=== PATIENT | male | born 1990 | race Caucasian/White ===

== ENCOUNTER 2023-05-27 13:21 | Inpatient (IN) ==
[2023-05-27 14:39] LABS: Basophils # (auto) 0.06 K/uL (0.00-0.20); Basophils % (auto) 0.7 %; Eosinophils # (auto) 0.02 K/uL (0.00-0.50); Eosinophils % (auto) 0.2 %; Hematocrit (blood only) 42.4 % (42.0-52.0); Hemoglobin 14.8 g/dl (14.0-18.0); Immature Granulocytes # (auto) 0.07 K/uL (0.01-0.20); Immature Granulocytes % (auto) 0.8 %; Lymphocytes # (auto) 1.93 K/uL (1.20-3.40); Mean Corpuscular Hgb Conc 34.9 g/dL (32.0-36.0); Mean Corpuscular Volume 91.8 fL (80.0-100.0); Mean Platelet Volume 9.8 fL (9.4-12.4); Monocytes # (auto) 0.73 K/uL (0.11-0.59); Monocytes % (auto) 7.9 %; Neutrophils # (auto) 6.38 K/uL (1.40-6.50); Neutrophils % (auto) 69.4 %; Platelet Count 320 K/uL (130-400); RDW Standard Deviation 40.6 fL (36.4-46.3); Red Blood Count 4.62 M/uL (4.70-6.10); White Blood Count 9.19 K/ul (4.8-10.8)
[2023-05-27 14:48] LABS: Albumin Level 5.1 gm/dl (3.4-5.0); BUN Creatinine Ratio 11.5 (10-20); Bilirubin Direct 0.1 mg/dl (0-0.2); Bilirubin,Total 0.7 mg/dl (0.2-1.0); Calcium 9.6 mg/dl (8.6-10.3); Est GFR (Non-African American) 102.7 ml/min; Potassium 3.7 mmol/L (3.5-5.1); Total Protein 7.8 gm/dl (6.0-8.3)
--- NOTE | 2023-05-27 15:00 | CT Scan Report ---
CT cervical spine wo con CT DOSE: 1119. mGy.cm CLINICAL HISTORY: 33 years-old Male with seizure. Acute seizure-like activity COMPARISON: Head CT of same day TECHNIQUE: Multiple axial CT images of the cervical spine were obtained without contrast. A dose low ering technique was utilized adhering to the principles of ALARA. FINDINGS: Minimal multilevel intervertebral disc space narrowing with mild uncovertebral hypertrophy. No acute fracture or subluxation identified. Minimal facet arthrosis. Chronic-appearing corticated o ssification adjacent to the C7 spinous process. Minimal wedge deformity of the C7 vertebral body appe ars chronic. Minimal levoscoliosis. The cervical soft tissues appear unremarkable. The visualized yelena ng apices appear clear. IMPRESSION: No acute cervical spine fracture or subluxation. ACT 112: Negative or not required by law. The above report was generated using voice recognition software. It may contain grammatical, syntax o r spelling errors. Electronically signed by: Atul Jasmine M.D. 05/27/2023 2:58 PM
--- NOTE | 2023-05-27 15:00 | CT Scan Report ---
CT OF THE HEAD WITHOUT CONTRAST CLINICAL HISTORY: Seizure. COMPARISON STUDY: No previous studies for comparison. TECHNIQUE: Helical axial images of the head were obtained without IV contrast. Automated exposure con trol was utilized for the study. A dose lowering technique was utilized adhering to the principles o f ALARA. FINDINGS: No acute intracranial hemorrhage, midline shift or mass effect is present. The ventricular system is unremarkable. The basal cisterns are patent. No extra-axial collections are present. There are no findings to suggest acute dural sinus thrombosis or acute territorial infarct. There are no ca lvarial fractures. IMPRESSION: No acute intracranial findings. ACT 112: Negative or not required by law. Electronically signed by: Aftab Gallegos M.D. 05/27/2023 2:59 PM
[2023-05-27 15:16] LABS: Appearance Urine Clear (Clear); Bacteria Urine Automated Negative (Negative); Bilirubin Urine Negative (Negative); Blood Urine Negative (Negative); Color Urine Yellow; Glucose Urine UA Negative (Negative); Ketones Urine Negative (Negative); Leukocyte Esterase Urine Negative (Negative); Nitrite Urine Negative (Negative); Protein Urine Trace (Negative); RBC Urine Automated 0-4 /hpf (0-4); Specific Gravity Urine 1.016 (1.000-1.030); Urobilinogen Urine Negative (Negative); pH Urine 5.5 (4.5-7.5)
--- NOTE | 2023-05-27 16:38 | History & Physical Report ---
Date of Service May 27, 2023 Assessment & Plan (1) Seizure-like activity: (2) Tobacco use: (3) Alcohol use disorder: Plan This is a 33-year-old male with PMH of alcohol use disorder, tobacco use who presents after a witnessed seizure like activity episode at work today. Seizure like activity Tonic clonic activity witnessed today at work, happened once before Apr 26 with a prodrome of flashing lights in peripheral vision In setting of alcohol use disorder, denies any history of seizures prior to last month Head CT and cervical spine CT did not show any acute abnormality Discussed with Dr. Souza of neurology - recommends MRI brain w/wo, EEG. No need for antiseizure medication at this time, will evaluate Seizure precautions, alcohol withdrawal as below Alcohol use disorder, withdrawal Last drink was last evening at 1999 Endorses 5-6 beers nightly, up to 1 case on weekends AST elevated at 43, etoh level <10 AWSS withdrawal protocol with gabapentin and PRN IV ativan Counseled on importance of alcohol cessation Appears to be in early stages of alcohol withdrawal with mild tremors, tachycardia and hypertension Starting folic acid and thiamine Tobacco use disorder Counseled on smoking cessation Nicotine patch ordered DVT Ppx: SCDs Code status: FULL PCP: no PCP (will need to establish at time of discharge) Dispo: Admitted to PCU Patient seen in collaboration with Dr. Young. Please see addendum. I spent a total of 75 minutes coordinating, documenting, and providing care for this patient excluding time spent in the performance of separately billed servi perez. History of Present Illness Chief Complaint: seizure Primary Care Provider: NO PCP This is a 33-year-old male with PMH of alcohol use disorder, tobacco use who presents after a witnessed seizure like activity episode at work today. Patient is not established with a PCP. First developed an episode of flashing lights in lateral visual dawn back around gi but no seizure like activity was associated. Then on Apr 26, patient also experienced described flashing lights in peripheral vision and sat down on couch, becoming rigid and falling onto stomach and began twitching and frothing at the mouth. And then he came to and returned to normal activity. No loss of bowel or bladder control. That event lasted for 2 minutes and was witnessed by his significant other. Initially called an ambulance but then decided not to come in because he felt better. Did not recur again untilt his morning, when he was at work and developed flashing light in lateral visual field and then reportedly became rigid and fell over. Coworker caught him and said he became stiff and was twitching a bit. Lasted approximately 2 minutes. After event had a headache and felt nauseated. No loss of bowel or bladder control. Was brought into ED for further evaluation. No known seizure history prior to event last month. Drinks 5-6 beers/ night and up to a full case on the weekends. Smokes 1/2 ppd. Sister was just diagnosed with MS. Only home medication is finasteride for hair loss. Allergies Allergy/AdvReac Type Severity Reaction Status Date / Time Lactobacillus acidophilus AdvReac Unverified 05/27/23 20:11 [From Acidophilus] Home Medications Medication Instructions Recorded Confirmed Type finasteride 5 mg tablet 5 mg PO DAILY 05/27/23 05/27/23 History Past Med/Surg History Medical History Tobacco use Alcohol use disorder No pertinent family history Surgical History Hx of tonsillectomy History of surgery on lower extremity traumatic accident, metal present Family History Other Multiple sclerosis Social History (Updated 05/27/23 @ 20:08 by Chantale Cox PA-C) Smoking Status: Current every day smoker Tobacco Type: Cigarettes Age Started Using Tobacco: 25; packs per day: 0.5; Hx Alcohol Use: Yes Alcohol type: beer Alcohol Intake Frequency Comment: 5-6 daily, more on weekends Hx Substance Use: Yes Prescribed Medications: Marijuana Feels Safe at Home: Yes Review of Systems Review of Systems: At least ten systems reviewed and negative except as noted in the HPI. Physical Exam Physical Exam: Please see Dr Young's addendum for physical exam. Results & Data Results & Data Vital Signs (Past 12 Hours) Vital Signs Temp Pulse Resp BP Pulse Ox O2 Del Method 05/27/23 16:00 100 H 24 159/102 H 97 Room Air 05/27/23 15:38 97 H 20 156/97 H 98 Room Air 05/27/23 14:06 97 H 20 99 Room Air 05/27/23 13:29 100 Room Air 05/27/23 13:29 36.9 C 100 H 20 146/82 H 100 Room Air Laboratory Results Short CBC 05/27/23 Range/Units 13:20 WBC 9.19 (4.8-10.8) K/ul Hgb 14.8 (14.0-18.0) g/dl Hct 42.4 (42.0-52.0) % Plt Count 320 (130-400) K/uL BMP 05/27/23 13:20 Sodium 138 Potassium 3.7 Chloride 100 Carbon Dioxide 22 BUN 11 Creatinine 0.96 Glucose 174 H Calcium 9.6 Cardiac Enzymes 05/27/23 Range/Units 13:20 Total Creatine Kinase 223 (30-223) U/L Liver Function 05/27/23 Range/Units 13:20 Total Bilirubin 0.7 (0.2-1.0) mg/dl Direct Bilirubin 0.1 (0-0.2) mg/dl AST 43 H (13-39) U/L ALT 42 (7-52) U/L Alkaline Phosphatase 49 (34-104) U/L Albumin 5.1 H (3.4-5.0) gm/dl Urine 05/27/23 Range/Units 14:56 Urine Color Yellow Urine Appearance Clear (Clear) Urine pH 5.5 (4.5-7.5) Ur Specific [place] 1.016 (1.000-1.030) Urine Protein Trace H (Negative) Urine Glucose (UA) Negative (Negative) Diagnostic Findings Cervical Spine CT 05/27/23 14:01 CT cervical spine wo con CT DOSE: 1119. mGy.cm CLINICAL HISTORY: 33 years-old Male with seizure. Acute seizure-like activity COMPARISON: Head CT of same day TECHNIQUE: Multiple axial CT images of the cervical spine were obtained without contrast. A dose lowering technique was utilized adhering to the principles of ALARA. FINDINGS: Minimal multilevel intervertebral disc space narrowing with mild uncovertebral hypertrophy. No acute fracture or subluxation identified. Minimal facet arthrosis. Chronic-appearing corticated ossification adjacent to the C7 spinous process. Minimal wedge deformity of the C7 vertebral body appears chronic. Minimal levoscoliosis. The cervical soft tissues appear unremarkable. The visualized lung apices appear clear. IMPRESSION: No acute cervical spine fracture or subluxation. ACT 112: Negative or not required by law. The above report was generated using voice recognition software. It may contain grammatical, syntax or spelling errors. Electronically signed by: Atul Jasmine M.D. 05/27/2023 2:[address] 05/27/23 14:01 CT OF THE HEAD WITHOUT CONTRAST CLINICAL HISTORY: Seizure. COMPARISON STUDY: No previous studies for comparison. TECHNIQUE: Helical axial images of the head were obtained without IV contrast. Automated exposure control was utilized for the study. A dose lowering technique was utilized adhering to the principles of ALARA. FINDINGS: No acute intracranial hemorrhage, midline shift or mass effect is present. The ventricular system is unremarkable. The basal cisterns are patent. No extra-axial collections are present. There are no findings to suggest acute dural sinus thrombosis or acute territorial infarct. There are no calvarial fractures. IMPRESSION: No acute intracranial findings. ACT 112: Negative or not required by law. Electronically signed by: Aftab Gallegos M.D. 05/27/2023 2:59 PM Code Status & VTE Plan VTE Prophylaxis Plan VTE Prophylaxis will be ordered: Yes Supervising Physician Co-Signing Physician Notes 33 year old with no chronic medical problems who presents after a seizure-like episode at work. Patient reported that on he had flashes of light in the left visual field and had a mild headache at the time. He saw his eye doctor who noted that he may have migraines. On April 26 he had another episode of light flashes in the left visual field followed by a seizure episode that was witnessed by girlfriend who reported that patient fell on the ground with some twitching movement and stiff. Patient reported losing consciousness during the episode. Girlfriend was at bedside noted that the episode last lasted less than 5 minutes. She reports that the patient was frothing in the mouth but there was no urinary or bowel incontinence. Episode today happened while at work. He also noted the same flashes of light in the visual field followed by loss of consciousness. He reported that he was caught by his body at work and said he did not hit his head. He also reported that he noted that he was twitching. Patient does have a significant alcohol history drinks about 5-6 beers per day and can drink a whole case over the weekend. Last drink was yesterday. Smokes half a pack per day. Uses. Marijuana occasionally but it has been a while. Denied any other illicit drug use. Reported systolic diagnosed with MS recently. Patient only takes finasteride for hair loss. Reported allergy to acidophilus with left hand swelling On exam, General: Well hydrated, no acute distress Eyes: PERRL, conjunctivae normal, not pale, anicteric sclerae, EOM intact bilaterally ENMT: External ear and nose normal, oropharynx normal Respiratory: Normal respiratory effort, no respiratory distress, lungs clear to auscultation, no crackles and no wheezes Cardiovascular: Tachycardic, regular Gastrointestinal (Abdomen): Abdomen is not distended, soft, non-tender to palpation, no guarding, no palpable hepatosplenomegaly, normal bowel sounds Musculoskeletal: No pedal edema, all extremities motor strength 5/5 Genitourinary: No CVA tenderness Neurologic: Alert and oriented x 3, No focal weakness, sensation grossly intact, mild tremors of outstretched hands Psychiatric: Euthymic affect Labs notable for glucose of 174 [random glucose], AST 43, alcohol level of less than [address] and cervical spine CT did not show any acute abnormality Neurology consult. EEG MRI brain Defer to neurology regarding need for antiseizure medication. Counseled patient extensively regarding smoking cessation and alcohol cessation. He reports that his cancer will quits those. Manage for alcohol withdrawal per CIWA protocol as patient seem to be in early stages of withdrawal with tachycardia, elevated blood pressure and mild tremors. Start folic acid and B12 I spent a total of 50 minutes coordinating, documenting and providing care for this patient excluding time spent in performance of separately billed services
[2023-05-27] MEDS ORDERED: GABAPENTIN 600 MG TAB PO ONE (17:30)
[2023-05-27] MEDS ORDERED: GABAPENTIN 1200MG ALCOHOL WITHDRAWAL LOAD PO STA (17:30)
[2023-05-27] MEDS ORDERED: LORazepam 1 MG TAB PO PRN ×2 (17:30→21:18)
[2023-05-27] MEDS ORDERED: Ativan PO Alcohol Withdrawal--Active Protocol PO PRN (17:30)
[2023-05-27 17:34] LABS: Partial Thromboplastin Ratio 0.9; Partial Thromboplastin Time 25 Seconds (21-31); Prothrombin Time 10.9 Seconds (9.0-12.0)
--- NOTE | 2023-05-27 18:40 | Emergency Department Note ---
History of Present Illness General Chief complaint: Seizure Time Seen by Provider: 05/27/23 14:01 History of Present Illness Provider complaint: Seizure Onset (ago): hour(s) 1 33-year-old male presents emergency department for seizure. Patient states he had a seizure at approximate 1 PM today. Patient states he started with a headache and he felt like he was can have a seizure. He states that it lasted for approximately 2 minutes according to his colleagues. He states his colleagues state it resolved on its own and that he was having tonic-clonic jerking. Patient denies any falls or traumas. No history of seizure. Patient states this is the second time last month this has happened like this with similar prodrome and headache prior to the seizure. Patient does report history of alcohol abuse saying he drinks heavily every other day of the week. He states his last drink was yesterday. No blood thinners. Home Medications Medication Instructions Recorded Confirmed Type finasteride 5 mg tablet 5 mg PO DAILY 05/27/23 05/27/23 History Allergies Allergy/AdvReac Type Severity Reaction Status Date / Time No Known Allergies Allergy Intermediate Verified 05/27/23 15:38 Past Med/Surg History Medical History No pertinent past medical history No pertinent family history Surgical History Hx of tonsillectomy History of surgery on lower extremity traumatic accident, metal present Social History Smoking Status: Current every day smoker Tobacco Type: Cigarettes Age Started Using Tobacco: 25; packs per day: 0.5; Hx Alcohol Use: Yes Hx Substance Use: Yes Prescribed Medications: Marijuana Feels Safe at Home: Yes Physical Exam Vital Signs Vital Signs - 24 hr 05/27/23 13:29 05/27/23 13:29 05/27/23 14:06 Temperature 36.9 C Temperature Source Oral Pulse Rate 100 H 97 H Pulse Rate [Apical] Pulse Rhythm Regular Respiratory Rate 20 20 Respiratory Effort / Characteristics Non-Labored Spontaneous Respiratory Depth Normal Blood Pressure 146/82 H Blood Pressure [Right Arm] Blood Pressure Mean 103 Blood Pressure Mean [Right Arm] Pulse Oximetry 100 100 99 Oxygen Delivery Method Room Air Room Air Room Air Sepsis Recent Fever Within 48 Hours No Sepsis New/Unexplained Change in Mental Status N/A Sepsis Action Taken by Nursing No Action Required 05/27/23 15:38 05/27/23 16:00 05/27/23 16:30 Temperature Temperature Source Pulse Rate 97 H 100 H 104 H Pulse Rate [Apical] Pulse Rhythm Respiratory Rate 20 24 21 Respiratory Effort / Characteristics Respiratory Depth Blood Pressure 156/97 H 159/102 H 143/93 H Blood Pressure [Right Arm] Blood Pressure Mean 116 121 109 Blood Pressure Mean [Right Arm] Pulse Oximetry 98 97 97 Oxygen Delivery Method Room Air Room Air Room Air Sepsis Recent Fever Within 48 Hours Sepsis New/Unexplained Change in Mental Status Sepsis Action Taken by Nursing 05/27/23 17:00 05/27/23 17:33 05/27/23 18:22 Temperature Temperature Source Pulse Rate 91 H 94 H Pulse Rate [Apical] 108 H Pulse Rhythm Respiratory Rate 23 20 15 Respiratory Effort / Characteristics Non-Labored Respiratory Depth Normal Blood Pressure 158/93 H 151/91 H Blood Pressure [Right Arm] 166/105 H Blood Pressure Mean 114 111 Blood Pressure Mean [Right Arm] 125 Pulse Oximetry 96 97 97 Oxygen Delivery Method Room Air Room Air Room Air Sepsis Recent Fever Within 48 Hours Sepsis New/Unexplained Change in Mental Status Sepsis Action Taken by Nursing Physical Exam HENT: Exam performed. -Head: Normocephalic and atraumatic. -Right Ear: External ear normal. No mastoid erythema -Left Ear: External ear normal. No mastoid erythema -Mouth/Throat: The oropharynx is clear and moist. No trismus in the jaw. No dental abscesses or uvula swelling. No oropharyngeal exudate or tonsillar abscesses. No evidence of any tongue laceration/bite EYES: Conjunctivae and EOM are normal. Pupils are equal, round, and reactive to light. Right eye exhibits no discharge. Left eye exhibits no discharge. No scleral icterus. Funduscopic exam showed no AV nicking or papilledema bilaterally. NECK: Normal range of motion. Neck supple. No JVD present. No spinous process tenderness present. No rigidity. No tracheal deviation and normal range of motion present. No Brudzinski's sign and no Kernig's sign noted. CV: Normal rate, regular rhythm, normal heart sounds and intact distal pulses. There is no peripheral edema. Palpable radial pulses bue. PULM/CHEST: Effort normal and breath sounds normal. No respiratory distress. No stridor. She has no wheezes. She has no rales. MUSC/SKEL: Normal range of motion. There is no peripheral edema, tenderness or deformity. NEURO: She is alert and oriented to person, place, and time. She has normal strength. No cranial nerve deficit or sensory deficit. Coordination and gait normal. GCS eye subscore is 4. GCS verbal subscore is 5. GCS motor subscore is 6. Cerebellar tests wnl. No clonus. SKIN: Skin is warm and dry. She is not diaphoretic. PSYCH: She has a normal mood and affect. Behavior is normal. Judgment and thought content normal. Course Course 1401: The patient was evaluated in room A11B. A complete history and physical exam was performed Cardiac monitoring: An order was placed for continuous cardiac monitoring. The monitor shows a rate of 90 with sinus rhythm interpreted by va 1547: Vital signs stable. Labs and imaging within normal limits. Patient neurologically intact no meningeal signs no focal neurological deficits. Discussed case with Dr. Souza on-call neurology who recommends patient be admitted for MRI EEG full neurology and cardiology evaluation as she states the patient could be having syncopal episodes also. Patient is agreement with the plan. [facility] lili LEE who stated to admit to Dr. Cunha. Administered Medications Lorazepam (Lorazepam 1 Mg Tab) 1 mg PO UD PRN; Protocol PRN Reason: EtOH Withdrawal AWSS Score 6+ Stop: 06/26/23 17:29 Last Admin: 05/27/23 17:46 Dose: 1 mg Documented By: GEO Discontinued Medications Gabapentin (Gabapentin 600 Mg Tab) 1,200 mg PO NOW ONE Stop: 05/27/23 17:31 Last Admin: 05/27/23 17:47 Dose: 1,200 mg Documented By: GEO Medical Decision Making Laboratory Data Attestation: I reviewed the patient's lab results. 05/27/23 13:20 05/27/23 13:20 Lab Results 05/27/23 05/27/23 05/27/23 Range/Units 13:20 14:29 14:46 WBC 9.19 (4.8-10.8) K/ul RBC 4.62 L (4.70-6.10) M/uL Hgb 14.8 (14.0-18.0) g/dl Hct 42.4 (42.0-52.0) % MCV 91.8 (80.0-100.0) fL MCH 32.0 (25.0-34.0) pg MCHC 34.9 (32.0-36.0) g/dL RDW Std Deviation 40.6 (36.4-46.3) fL RDW Coeff of Mariah 12.0 (11.5-14.5) % Plt Count 320 (130-400) K/uL MPV 9.8 (9.4-12.4) fL Immature Gran % (Auto) 0.8 % Neut % (Auto) 69.4 % Lymph % (Auto) 21.0 % Brewster % (Auto) 7.9 % Eos % (Auto) 0.2 % Baso % (Auto) 0.7 % Neut # (Auto) 6.38 (1.40-6.50) K/uL Lymph # (Auto) 1.93 (1.20-3.40) K/uL Brewster # (Auto) 0.73 H (0.11-0.59) K/uL Eos # (Auto) 0.02 (0.00-0.50) K/uL Baso # (Auto) 0.06 (0.00-0.20) K/uL Immature Gran # (Auto) 0.07 (0.01-0.20) K/uL PT Cancelled INR Cancelled APTT Cancelled PTT Ratio Cancelled Sodium 138 (136-145) mmol/L Potassium 3.7 (3.5-5.1) mmol/L Chloride 100 (98-107) mmol/L Carbon Dioxide 22 (21-32) mmol/L Anion Gap 16 H (3-11) BUN 11 (6-23) mg/dl Creatinine 0.96 (0.6-1.4) mg/dl Est Cr Clr Drug Dosing 119.0 ml/min Est GFR ( Amer) 119.0 ml/min Est GFR (Non-Af Amer) 102.7 ml/min BUN/Creatinine Ratio 11.5 (10-20) Glucose 174 H (70-99(Fasting)) mg/dl POC Glucose 124 H (70-99) mg/dl Calcium 9.6 (8.6-10.3) mg/dl Total Bilirubin 0.7 (0.2-1.0) mg/dl Direct Bilirubin 0.1 (0-0.2) mg/dl AST 43 H (13-39) U/L ALT 42 (7-52) U/L Alkaline Phosphatase 49 (34-104) U/L Total Creatine Kinase 223 (30-223) U/L Total Protein 7.8 (6.0-8.3) gm/dl Albumin 5.1 H (3.4-5.0) gm/dl Lipase 38 (11-82) U/L Urine Color Urine Appearance (Clear) Urine pH (4.5-7.5) Ur Specific Mckittrick (1.000-1.030) Urine Protein (Negative) Urine Glucose (UA) (Negative) Urine Ketones (Negative) Urine Blood (Negative) Urine Nitrite (Negative) Urine Bilirubin (Negative) Urine Urobilinogen (Negative) Ur Leukocyte Esterase (Negative) Urine WBC (Auto) (0-5) /hpf Urine RBC (Auto) (0-4) /hpf U Hyaline Cast (Auto) (0-5) /lpf U Epithel Cells (Auto) (0-5) /lpf Urine Bacteria (Auto) (Negative) Ethyl Alcohol mg/dL < 10.0 (<10.0) mg/dl 05/27/23 05/27/23 Range/Units 14:56 16:50 WBC (4.8-10.8) K/ul RBC (4.70-6.10) M/uL Hgb (14.0-18.0) g/dl Hct (42.0-52.0) % MCV (80.0-100.0) fL MCH (25.0-34.0) pg MCHC (32.0-36.0) g/dL RDW Std Deviation (36.4-46.3) fL RDW Coeff of Mariah (11.5-14.5) % Plt Count (130-400) K/uL MPV (9.4-12.4) fL Immature Gran % (Auto) % Neut % (Auto) % Lymph % (Auto) % Brewster % (Auto) % Eos % (Auto) % Baso % (Auto) % Neut # (Auto) (1.40-6.50) K/uL Lymph # (Auto) (1.20-3.40) K/uL Brewster # (Auto) (0.11-0.59) K/uL Eos # (Auto) (0.00-0.50) K/uL Baso # (Auto) (0.00-0.20) K/uL Immature Gran # (Auto) (0.01-0.20) K/uL PT 10.9 INR 1.0 APTT 25 PTT Ratio 0.9 Sodium (136-145) mmol/L Potassium (3.5-5.1) mmol/L Chloride (98-107) mmol/L Carbon Dioxide (21-32) mmol/L Anion Gap (3-11) BUN (6-23) mg/dl Creatinine (0.6-1.4) mg/dl Est Cr Clr Drug Dosing ml/min Est GFR ( Amer) ml/min Est GFR (Non-Af Amer) ml/min BUN/Creatinine Ratio (10-20) Glucose (70-99(Fasting)) mg/dl POC Glucose (70-99) mg/dl Calcium (8.6-10.3) mg/dl Total Bilirubin (0.2-1.0) mg/dl Direct Bilirubin (0-0.2) mg/dl AST (13-39) U/L ALT (7-52) U/L Alkaline Phosphatase (34-104) U/L Total Creatine Kinase (30-223) U/L Total Protein (6.0-8.3) gm/dl Albumin (3.4-5.0) gm/dl Lipase (11-82) U/L Urine Color Yellow Urine Appearance Clear (Clear) Urine pH 5.5 (4.5-7.5) Ur Specific Mckittrick 1.016 (1.000-1.030) Urine Protein Trace H (Negative) Urine Glucose (UA) Negative (Negative) Urine Ketones Negative (Negative) Urine Blood Negative (Negative) Urine Nitrite Negative (Negative) Urine Bilirubin Negative (Negative) Urine Urobilinogen Negative (Negative) Ur Leukocyte Esterase Negative (Negative) Urine WBC (Auto) 1-5 (0-5) /hpf Urine RBC (Auto) 0-4 (0-4) /hpf U Hyaline Cast (Auto) 1-5 (0-5) /lpf U Epithel Cells (Auto) 10-20 H (0-5) /lpf Urine Bacteria (Auto) Negative (Negative) Ethyl Alcohol mg/dL (<10.0) mg/dl Imaging Data Attestation: I personally reviewed and interpreted this imaging study as follows: My Impression: CT head: No [facility] Radiologist's Impression: Cervical Spine CT 05/27/23 14:01 CT cervical spine wo con CT DOSE: 1119. mGy.cm CLINICAL HISTORY: 33 years-old Male with seizure. Acute seizure-like activity COMPARISON: Head CT of same day TECHNIQUE: Multiple axial CT images of the cervical spine were obtained without contrast. A dose lowering technique was utilized adhering to the principles of ALARA. FINDINGS: Minimal multilevel intervertebral disc space narrowing with mild uncovertebral hypertrophy. No acute fracture or subluxation identified. Minimal facet arthrosis. Chronic-appearing corticated ossification adjacent to the C7 spinous process. Minimal wedge deformity of the C7 vertebral body appears chronic. Minimal levoscoliosis. The cervical soft tissues appear unremarkable. The visualized lung apices appear clear. IMPRESSION: No acute cervical spine fracture or subluxation. ACT 112: Negative or not required by law. The above report was generated using voice recognition software. It may contain grammatical, syntax or spelling errors. Electronically signed by: Atul Jasmine M.D. 05/27/2023 2:[address] 05/27/23 14:01 CT OF THE HEAD WITHOUT CONTRAST CLINICAL HISTORY: Seizure. COMPARISON STUDY: No previous studies for comparison. TECHNIQUE: Helical axial images of the head were obtained without IV contrast. Automated exposure control was utilized for the study. A dose lowering technique was utilized adhering to the principles of ALARA. FINDINGS: No acute intracranial hemorrhage, midline shift or mass effect is present. The ventricular system is unremarkable. The basal cisterns are patent. No extra-axial collections are present. There are no findings to suggest acute dural sinus thrombosis or acute territorial infarct. There are no calvarial fractures. IMPRESSION: No acute intracranial findings. ACT 112: Negative or not required by law. Electronically signed by: Aftab Gallegos M.D. 05/27/2023 2:59 PM ECG Data Attestation: I personally reviewed and interpreted this ECG as follows: Rate (beats per minute): 86 Rhythm: + normal sinus ECG Intervals/blocks: + Normal QRS, + Normal HI and + Normal QT-c ECG ST segments: + Normal ST segments [facility] Narrative 1401: The patient was evaluated in room A11B. A complete history and physical exam was performed Cardiac monitoring: An order was placed for continuous cardiac monitoring. The monitor shows a rate of 90 with sinus rhythm interpreted by me 1547: Vital signs stable. Labs and imaging within normal limits. Patient neurologically intact no meningeal signs no focal neurological deficits. Discussed case with Dr. Souza on-call neurology who recommends patient be admitted for MRI EEG full neurology and cardiology evaluation as she states the patient could be having syncopal episodes also. Patient is agreement with the plan. [facility] with Marianna LEE who stated to admit to Dr. Cunha. Impression & Plan Seizure-like activity Discharge Plan Visit Data Chief Complaint: Seizure ED Provider: Davin Mcintosh Discharge Problem: Seizure-like activity Patient Disposition: Admitted As Inpatient Forms Stand Alone Forms: [facility] Prescriptions Prescriptions: No Action finasteride 5 mg Tablet 5 mg PO DAILY Referrals Referrals: PCP,NO [Primary Care Provider] -
[2023-05-27] MEDS ORDERED: POLYETHYLENE (MIRALAX) 17 GM PACK PO PRN (19:21)
[2023-05-27] MEDS ORDERED: ONDANSETRON INJ 2 MG/ML 2 ML VIAL IV PRN (19:21)
[2023-05-27] MEDS ORDERED: ACETAMINOPHEN 325 MG TAB PO PRN (19:21)
[2023-05-27] MEDS ORDERED: GADOBUTROL 65ML VIAL IV ONE (21:46)
--- NOTE | 2023-05-27 22:28 | Magnetic Resonance Report ---
Exam(s): MRI HEAD W/WO Contrast IV Amt: 8mL Gadavist given IV EXAM: MR Head Without and With Intravenous Contrast CLINICAL HISTORY: Reason for exam: seizure. TECHNIQUE: Magnetic resonance images of the head/brain without and with intravenous contrast in multiple planes. CONTRAST: Patient received 8mL Gadavist given IV of IV contrast COMPARISON: CT head 05/27/2023. FINDINGS: Brain: Enhancing, T2-weighted/FLAIR hyperintense mass appears to be centered in the cortex of the lingual gyrus of the right occipital lobe measuring approximately 11 x 12 x 9 mm. There is a nonenhancing component along the superior aspect of the mass. Minimal mass effect is seen. No hemorrhage. No acute infarct. Ventricles: Unremarkable. No ventriculomegaly. Bones/joints: Unremarkable. No acute fracture. Sinuses: Unremarkable as visualized. Mastoid air cells: Unremarkable as visualized. No mastoid effusion. Orbits: Unremarkable as visualized. 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 Neurosurgical consultation is recommended. Electronically signed by: Ronnie Jerez MD 05/27/23 22:27 PM
[2023-05-27] MEDS: NICOTINE 14 MG/24 HR PATCH TD SCH (22:58)
[2023-05-27] MEDS: GABAPENTIN 600 MG TAB PO SCH (23:36)
[2023-05-28] MEDS: GABAPENTIN 600 MG TAB PO SCH (05:12)
[2023-05-28 07:28] LABS: Hematocrit (blood only) 45.2 % (42.0-52.0); Hemoglobin 15.4 g/dl (14.0-18.0); Mean Corpuscular Hgb Conc 34.1 g/dL (32.0-36.0); Mean Platelet Volume 9.5 fL (9.4-12.4); Platelet Count 262 K/uL (130-400); Red Blood Count 4.81 M/uL (4.70-6.10); White Blood Count 7.98 K/ul (4.8-10.8)
[2023-05-28 07:52] LABS: BUN Creatinine Ratio 11.7 (10-20); Creatinine Clr Calc Pharmacy 121.5 ml/min; Est GFR (African American) 122.1 ml/min; Est GFR (Non-African American) 105.4 ml/min; Potassium 3.7 mmol/L (3.5-5.1)
[2023-05-28] MEDS: NICOTINE 14 MG/24 HR PATCH TD SCH (07:58)
[2023-05-28] MEDS: FOLIC ACID 1 MG TAB PO SCH (08:00)
[2023-05-28] MEDS: THIAMINE HCL 100 MG TAB PO SCH (08:00)
[2023-05-28] MEDS: FINASTERIDE 5 MG TAB PO SCH (08:00)
--- NOTE | 2023-05-28 09:31 | Neurology Consultation ---
Date of Consultation May 28, 2023 Assessment & Plan (1) Seizure: (2) Brain tumor: Plan 33 y/o male with history of alcohol use disorder and tobacco use that presented following a suspected seizure and found to have enhancing right occipital mass. 1. Neurosurgery consultation 2. Keppra 500 mg bid 3. EEG 4. Seizure precautions 5. No driving Telehealth Consultation Telehealth Information Telehealth Information: I performed this visit using a real-time telehealth connection between my location and the patients location ([facility]). After connecting through interactive tele-video, patient was identified by name and date of and/or wristband check.Patient (or authorized healthcare client service representative) was informed that this was a telemedicine visit and it was being conducted confidentially over secure lines. My office door was closed and no one else was present in the room with me.Patient (or authorized healthcare client service representative) provided consent to proceed with the visit, expressed an understanding of privacy and security of the telemedicine visit, and gave permission to have a hospital client service representative in the room in order to assist with the visit and to conduct portions of the visit, as needed. I informed the patient (or authorized healthcare client service representative) that I reviewed their record and presented the opportunity for them to ask any questions regarding the visit today. The patient agreed to participate. History of Present Illness Reason for Consultation: seizure Requesting Physician: Chantale Cox PA-C Attending Physician: Kodi Wade MD History of Present Illness 33 y/o male with history of alcohol use disorder and tobacco use that presented following a seizure. On yesterday while he was at work, he had just finished walking down the hallway and started getting flashing lights in the periphery of the left eye. He remembers starting to fall to the ground and then the next thing he remembers is waking up on the ground with a coat underneath his head. He was told by coworkers that he had gotten tense all over and had shaking of his extremities and foaming of the mouth. He did not have tongue biting or incontinence. He feels he had a brief period of confusion following the event. EMS was called and he was brought to the ED for further evaluation. On , he had a prior event, which he describes as watering house plants and then he started to have a similar sensation of most recent event as bright flashing lights in his left peripheral vision which prompted him to sit down. He was told that he subsequently began twitching all over and had foaming at the mouth. He did not have any tongue biting or incontinence. He denies any new prescribed or OTC medications over the last few months. He usually drinks 5-6 beers daily on average but he would often drink more on off days. He noticed that both events occurred after off days where he had likely consumed more alcohol transitioning into days wherer he often consumed alcohol. He denies any illiicit drug use. He denies any prior events to [facility]. For the past couple of months, he has been having mild headaches and also had a couple of occurrences of flashing lights with headache. He denies weakness, numbness/tingling, speech changes, vision loss, or diplopia. Allergies Allergy/AdvReac Type Severity Reaction Status Date / Time Lactobacillus acidophilus AdvReac Unverified 05/27/23 20:11 [From Acidophilus] Home Medications Medication Instructions Recorded Confirmed Type finasteride 5 mg tablet 5 mg PO DAILY 05/27/23 05/27/23 History Patient History Medical History Tobacco use Alcohol use disorder No pertinent family history Surgical History Hx of tonsillectomy History of surgery on lower extremity traumatic accident, metal present Family History Other Multiple sclerosis Social History (Updated 05/27/23 @ 20:08 by Chantale Cox PA-C) Smoking Status: Current every day smoker Tobacco Type: Cigarettes Age Started Using Tobacco: 25; packs per day: 0.5; Hx Alcohol Use: Yes Alcohol type: beer Alcohol Intake Frequency Comment: 5-6 daily, more on weekends Hx Substance Use: Yes Prescribed Medications: Marijuana Last Used Substance: Unknown Preferred Language: Slovenian Communication Ability: Effective Fitness Teacher Required: No Beliefs That Will Affect Care: None Current Living Situation: Significant Other Other Information That Helps Us Care for You: No Feels Safe at Home: Yes Safety Concerns: Feels Safe At This Time Assistive Devices: None Physical Exam AAO X 3 No aphasia or dysarthria VFF grossly intact EOMI, no nsytagmus Facial sensations intact No facial asymmetry Tongue protrudes midline Motor: Moves all four extremities antigravity equally and without drift\ Results & Data Vital Signs (Past 12 Hours) Vital Signs Temp Pulse Pulse Resp BP Pulse Ox O2 Del Method 05/28/23 07:26 36.9 C 73 18 141/85 H 98 Room Air 05/28/23 07:21 88 05/28/23 04:15 36.7 C 71 18 133/79 98 Room Air 05/27/23 23:00 94 H 05/27/23 22:24 36.9 C 88 16 152/101 H 99 Room Air Laboratory Results WBC 7.98, HGB 15.4, HCT 45.2, Plts 262, INR 1.0, NA 138, Potassium 3.7, Chloride 101, Carbon Dioxide 29, Creatinine 0.94, Glucose 95, urine negative nitrite, negative leukocyte esterase Diagnostic Findings CT Cervical spine:No acute cervical spine fracture or subluxation. CT head:No acute intracranial findings. MRI brain w/wo: Right occipital lobe enhancing mass measuring up to 12 mm. 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 .
--- NOTE | 2023-05-28 09:58 | Hospitalist Progress Note ---
Date of Service May 28, 2023 Assessment & Plan (1) Seizure-like activity: (2) Tobacco use: (3) Alcohol use disorder: Plan This is a 33-year-old male with PMH of alcohol use disorder, tobacco use who presents after a witnessed seizure like activity episode at work. Seizure like activity Tonic clonic activity witnessed at work, happened once before Apr 26 with a prodrome of flashing lights in peripheral vision In setting of alcohol use disorder, denies any history of seizures prior to last month Head CT and cervical spine CT did not show any acute abnormality Discussed on admission with Dr. Souza of neurology - recommends MRI brain w/wo, EEG. At that time felt no need for antiseizure medication. 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 Neurosurgical consultation is recommended. 05/28 - Discussed with Neurology and neurosurgery - neurosurgery recommends [place] [facility] [place] pt accepted to neurology Dr. Root - ellie for further neurosurg. yurialRolan smith. biopsy of the lesion Start Keppra 500 bid Alcohol use disorder, withdrawal Endorses 5-6 beers nightly, up to 1 case on weekends AST elevated at 43, etoh level <10 AWSS withdrawal protocol with gabapentin and PRN IV ativan Counseled on importance of alcohol cessation On admission appeared to be in early stages of alcohol withdrawal with mild tremors, tachycardia and hypertension, currently w/ no signs of withdrawal Cont. folic acid and thiamine Tobacco use disorder Counseled on smoking cessation Nicotine patch ordered DVT Ppx: SCDs Code status: FULL PCP: no PCP (will need to establish at time of discharge) Dispo: Admitted to PCU -> plan to transfer [place] [facility] [place] Admission and Anticipated Discharge Date Admission Date: May 27, 2023 Subjective Pt seen in follow up of seizure, new onset. Brain MRI w/ R occipital lobe enhancing mass measuring up to 12 mm Neurology and neurosurgery consulted - recommend transfer to [facility] [place] - pt accepted to neurology Dr. Root - ellie for further neurosurg. yurialRolan smith. biopsy of the lesion Pt is sitting up in bed in NAD No fever, chills, chest pain,shortness of breath. Currently no weakness, overall feeling well. Review of Systems Review of Systems: All systems reviewed & are unremarkable except as noted in Subjective Physical Exam Physical Exam: General: WD/WN young M in NAD Eyes: PERRL, conjunctivae normal, not pale, anicteric sclerae, EOM intact bilaterally ENMT: External ear and nose normal, oropharynx normal Respiratory: Normal respiratory effort, no respiratory distress, lungs clear to auscultation, no crackles and no wheezes Cardiovascular: rrr Gastrointestinal (Abdomen): Abdomen is not distended, soft, non-tender to palpation, normal bowel sounds Musculoskeletal: No pedal edema, all extremities motor strength 5/5 Genitourinary:No CVA tenderness Neurologic: Alert and oriented x 3, No focal weakness, sensation grossly intact, moves extremities Psychiatric: Euthymic affect Results & Data Results & Data Vital Signs (Past 12 Hours) Vital Signs Temp Pulse Pulse Resp BP Pulse Ox O2 Del Method 05/28/23 07:26 36.9 C 73 18 141/85 H 98 Room Air 05/28/23 07:21 88 05/28/23 04:15 36.7 C 71 18 133/79 98 Room Air 05/27/23 23:00 94 H 05/27/23 22:24 36.9 C 88 16 152/101 H 99 Room Air Laboratory Results 05/28/23 05/27/23 05/27/23 Range/Units 07:01 16:50 14:56 WBC 7.98 (4.8-10.8) K/ul RBC 4.81 (4.70-6.10) M/uL Hgb 15.4 (14.0-18.0) g/dl Hct 45.2 (42.0-52.0) % MCV 94.0 (80.0-100.0) fL MCH 32.0 (25.0-34.0) pg MCHC 34.1 (32.0-36.0) g/dL RDW Std Deviation 42.0 (36.4-46.3) fL RDW Coeff of Mariah 12.0 (11.5-14.5) % Plt Count 262 (130-400) K/uL MPV 9.5 (9.4-12.4) fL Immature Gran % (Auto) % Neut % (Auto) % Lymph % (Auto) % [place] % (Auto) % Eos % (Auto) % Baso % (Auto) % Neut # (Auto) (1.40-6.50) K/uL Lymph # (Auto) (1.20-3.40) K/uL [place] # (Auto) (0.11-0.59) K/uL Eos # (Auto) (0.00-0.50) K/uL Baso # (Auto) (0.00-0.20) K/uL Immature Gran # (Auto) (0.01-0.20) K/uL PT 10.9 INR 1.0 APTT 25 PTT Ratio 0.9 Sodium 138 (136-145) mmol/L Potassium 3.7 (3.5-5.1) mmol/L Chloride 101 (98-107) mmol/L Carbon Dioxide 29 (21-32) mmol/L Anion Gap 8 (3-11) BUN 11 (6-23) mg/dl Creatinine 0.94 (0.6-1.4) mg/dl Est Cr Clr Drug Dosing 121.5 ml/min Est GFR ( Amer) 122.1 ml/min Est GFR (Non-Af Amer) 105.4 ml/min BUN/Creatinine Ratio 11.7 (10-20) Glucose 95 (70-99(Fasting)) mg/dl POC Glucose (70-99) mg/dl Calcium 10.0 (8.6-10.3) mg/dl Total Bilirubin (0.2-1.0) mg/dl Direct Bilirubin (0-0.2) mg/dl AST (13-39) U/L ALT (7-52) U/L Alkaline Phosphatase (34-104) U/L Total Creatine Kinase (30-223) U/L Total Protein (6.0-8.3) gm/dl Albumin (3.4-5.0) gm/dl Lipase (11-82) U/L Urine Color Yellow Urine Appearance Clear (Clear) Urine pH 5.5 (4.5-7.5) Ur Specific [place] 1.016 (1.000-1.030) Urine Protein Trace H (Negative) Urine Glucose (UA) Negative (Negative) Urine Ketones Negative (Negative) Urine Blood Negative (Negative) Urine Nitrite Negative (Negative) Urine Bilirubin Negative (Negative) Urine Urobilinogen Negative (Negative) Ur Leukocyte Esterase Negative (Negative) Urine WBC (Auto) 1-5 (0-5) /hpf Urine RBC (Auto) 0-4 (0-4) /hpf U Hyaline Cast (Auto) 1-5 (0-5) /lpf U Epithel Cells (Auto) 10-20 H (0-5) /lpf Urine Bacteria (Auto) Negative (Negative) Ethyl Alcohol mg/dL (<10.0) mg/dl 05/27/23 05/27/23 05/27/23 Range/Units 14:46 14:29 13:20 WBC 9.19 (4.8-10.8) K/ul RBC 4.62 L (4.70-6.10) M/uL Hgb 14.8 (14.0-18.0) g/dl Hct 42.4 (42.0-52.0) % MCV 91.8 (80.0-100.0) fL MCH 32.0 (25.0-34.0) pg MCHC 34.9 (32.0-36.0) g/dL RDW Std Deviation 40.6 (36.4-46.3) fL RDW Coeff of Mariah 12.0 (11.5-14.5) % Plt Count 320 (130-400) K/uL MPV 9.8 (9.4-12.4) fL Immature Gran % (Auto) 0.8 % Neut % (Auto) 69.4 % Lymph % (Auto) 21.0 % [place] % (Auto) 7.9 % Eos % (Auto) 0.2 % Baso % (Auto) 0.7 % Neut # (Auto) 6.38 (1.40-6.50) K/uL Lymph # (Auto) 1.93 (1.20-3.40) K/uL [place] # (Auto) 0.73 H (0.11-0.59) K/uL Eos # (Auto) 0.02 (0.00-0.50) K/uL Baso # (Auto) 0.06 (0.00-0.20) K/uL Immature Gran # (Auto) 0.07 (0.01-0.20) K/uL PT Cancelled INR Cancelled APTT Cancelled PTT Ratio Cancelled Sodium 138 (136-145) mmol/L Potassium 3.7 (3.5-5.1) mmol/L Chloride 100 (98-107) mmol/L Carbon Dioxide 22 (21-32) mmol/L Anion Gap 16 H (3-11) BUN 11 (6-23) mg/dl Creatinine 0.96 (0.6-1.4) mg/dl Est Cr Clr Drug Dosing 119.0 ml/min Est GFR ( Amer) 119.0 ml/min Est GFR (Non-Af Amer) 102.7 ml/min BUN/Creatinine Ratio 11.5 (10-20) Glucose 174 H (70-99(Fasting)) mg/dl POC Glucose 124 H (70-99) mg/dl Calcium 9.6 (8.6-10.3) mg/dl Total Bilirubin 0.7 (0.2-1.0) mg/dl Direct Bilirubin 0.1 (0-0.2) mg/dl AST 43 H (13-39) U/L ALT 42 (7-52) U/L Alkaline Phosphatase 49 (34-104) U/L Total Creatine Kinase 223 (30-223) U/L Total Protein 7.8 (6.0-8.3) gm/dl Albumin 5.1 H (3.4-5.0) gm/dl Lipase 38 (11-82) U/L Urine Color Urine Appearance (Clear) Urine pH (4.5-7.5) Ur Specific [place] (1.000-1.030) Urine Protein (Negative) Urine Glucose (UA) (Negative) Urine Ketones (Negative) Urine Blood (Negative) Urine Nitrite (Negative) Urine Bilirubin (Negative) Urine Urobilinogen (Negative) Ur Leukocyte Esterase (Negative) Urine WBC (Auto) (0-5) /hpf Urine RBC (Auto) (0-4) /hpf U Hyaline Cast (Auto) (0-5) /lpf U Epithel Cells (Auto) (0-5) /lpf Urine Bacteria (Auto) (Negative) Ethyl Alcohol mg/dL < 10.0 (<10.0) mg/dl Medications Administered Current Inpatient Medications Acetaminophen (Acetaminophen 325 Mg Tab) 650 mg PO Q4H PRN PRN Reason: Pain or Fever Stop: 06/26/23 19:20 Finasteride (Finasteride 5 Mg Tab) 5 mg PO DAILY [facility] Stop: 06/27/23 08:59 Last Admin: 05/28/23 08:00 Dose: 5 mg Folic Acid (Folic Acid 1 Mg Tab) 1 mg PO QAM [facility] Stop: 06/27/23 08:59 Last Admin: 01/23/24 08:00 Dose: 1 mg Gabapentin (Gabapentin 600 Mg Tab) 600 mg PO Q24H [facility] Stop: 05/31/23 05:31 Gabapentin (Gabapentin 600 Mg Tab) 600 mg PO Q12H [facility] Stop: 05/30/23 05:31 Gabapentin (Gabapentin 600 Mg Tab) 600 mg PO Q8H [facility] Stop: 05/29/23 05:31 Lorazepam (Lorazepam 1 Mg Tab) 1 mg PO UD PRN; Protocol PRN Reason: EtOH Withdrawal AWSS Score 6-7 Stop: 06/26/23 17:29 Last Admin: 05/27/23 17:46 Dose: 1 mg Lorazepam (Lorazepam 1 Mg Tab) 2 mg PO UD PRN; Protocol PRN Reason: EtOH Withdrawal AWSS Score 8+ Stop: 06/26/23 21:17 Miscellaneous (Remove Nicoderm Patch) 1 each N/A DAILY@0859 [facility] Stop: 06/27/23 08:58 Last Admin: 05/28/23 07:16 Dose: Not Given Nicotine (Nicotine 14 Mg/24 Hr Patch) [facility] [place]: 06/26/23 19:59 Last Admin: 05/28/23 07:58 Dose: Not Given Ondansetron HCl (Ondansetron Inj 2 Mg/Ml 2 Ml Vial) 4 mg IV Q6H PRN PRN Reason: Nausea Stop: 06/26/23 19:20 Polyethylene Glycol (Polyethylene (Miralax) 17 Gm Pack) 17 gm PO DAILY PRN PRN Reason: Constipation Stop: 06/26/23 19:20 Thiamine HCl (Thiamine Hcl 100 Mg Tab) 100 mg PO QAM [facility] Stop: 06/27/23 08:59 Last Admin: 05/28/23 08:00 Dose: 100 mg
--- NOTE | 2023-05-28 12:19 | Electrocardiogram Report ---
Test Reason : Blood Pressure : / mmHG Vent. Rate : 086 BPM Atrial Rate : 086 BPM P-R Int : 138 ms QRS Dur : 094 ms QT Int : 352 ms P-R-T Axes : 053 053 059 degrees QTc Int : 421 ms Normal sinus rhythm Normal ECG No previous ECGs available Confirmed by Jaswinder Lozano ([id number]) on 05/28/2023 12:18:54 PM Referred By: REFERRED SELF Confirmed By:Usman Lozano
--- NOTE | 2023-05-28 12:20 | Electrocardiogram Report ---
Test Reason : Blood Pressure : / mmHG Vent. Rate : 085 BPM Atrial Rate : 085 BPM P-R Int : 128 ms QRS Dur : 102 ms QT Int : 376 ms P-R-T Axes : 065 054 054 degrees QTc Int : 447 ms Normal sinus rhythm When compared with ECG of 27-MAY-2023 13:41, (unconfirmed) No significant change was found Confirmed by Jaswinder Lozano ([id number]) on 05/28/2023 12:19:36 PM Referred By: REFERRED SELF Confirmed By:Usman Lozano
[2023-05-28] MEDS ORDERED: GABAPENTIN 600 MG TAB PO SCH (13:30)
[2023-05-28] MEDS: levETIRAcetam 500 MG TAB PO SCH (19:38)
--- NOTE | 2023-05-29 06:33 | Electroencephalogram ---
EEG Procedure Note Date of Service May 28, 2023 Start / End Times Start Time: 06:15 End Time: 06:35 Referring Physician Chantale Cox PA-C History A 33 year old male with possible seizure. EEG performed for evaluation of epileptiform activity. Home Medication List Medication Instructions Recorded Confirmed Type finasteride 5 mg tablet 5 mg PO DAILY 05/27/23 05/27/23 History Inpatient Medication List Finasteride (Finasteride 5 Mg Tab) 5 mg PO DAILY [facility] Stop: 06/27/23 08:59 Last Admin: 05/28/23 08:00 Dose: 5 mg Documented By: BARBARA Folic Acid ([facility] Acid 1 Mg Tab) [facility] [place] Stop: 06/27/23 08:59 Last Admin: 05/28/23 08:00 Dose: 1 mg Documented By: BARBARA Levetiracetam (Levetiracetam 500 Mg Tab) 500 mg PO BID [facility] Stop: 06/27/23 20:59 Last Admin: 05/28/23 19:38 Dose: 500 mg Documented By: MARKY Lorazepam (Lorazepam 1 Mg Tab) 1 mg PO UD PRN; Protocol PRN Reason: EtOH Withdrawal AWSS Score 6-7 Stop: 06/26/23 17:29 Last Admin: 05/27/23 17:46 Dose: 1 mg Documented By: GEO Miscellaneous (Remove Nicoderm Patch) 1 each N/A DAILY@0859 [facility] Stop: 06/27/23 08:58 Last Admin: 05/28/23 07:16 Dose: Not Given Documented By: BARBARA Nicotine (Nicotine 14 Mg/24 Hr Patch) 14 mg TD [facility] Stop: 06/26/23 19:59 Last Admin: 05/28/23 07:58 Dose: Not Given Documented By: Admin: 05/27/23 22:58 Dose: Not Given Documented By: MARKY Thiamine HCl (Thiamine Hcl 100 Mg Tab) [facility] [place] Stop: 06/27/23 08:59 Last Admin: 05/28/23 08:00 Dose: 100 mg Documented By: BARBARA Discontinued Medications Gabapentin (Gabapentin 600 Mg Tab) 600 mg PO Q8H [facility] Stop: 05/29/23 05:31 Last Admin: 05/28/23 13:41 Dose: 600 mg Documented By: BARBARA Gabapentin (Gabapentin 600 Mg Tab) 600 mg PO Q6H [facility] Stop: 05/28/23 05:31 Last Admin: 05/28/23 05:12 Dose: 600 mg Documented By: Admin: 05/27/23 23:36 Dose: 600 mg Documented By: MARKY Gabapentin (Gabapentin 600 Mg Tab) 1,200 mg PO NOW ONE Stop: 05/27/23 17:31 Last Admin: 05/27/23 17:47 Dose: 1,200 mg Documented By: ES Gadobutrol (Gadobutrol 65ml Vial) 8 ml IV ONCE ONE Stop: 05/27/23 21:47 Last Admin: 05/27/23 21:46 Dose: 8 ml Documented By: FABIAN Description This is a 21 electrode EEG with a single channel dedicated to limited EKG. The electrodes were placed in accordance with the International 10-20 system. REPORT: At the onset of the EEG, the patient is awake. The background activity consist of 10-11 Hz, persistent, posteriorly dominant, moderate amplitude, sy mmetric and rhythmic activity that is reactive to eye opening. Anteriorly, it consist of a mixture of low voltage indeterminate activity and 15-25 Hz, persistent, low amplitude, symmetric and rhythmic activity. Stepwise intermittent photic stimulation (1-21 Hz) and hyperventilation (3 minutes, good effort) do not induce any abnormalities. Drowsiness is characterized by low amplitude mixed frequency activity, roving eye movements, and decreased eye blinking and muscle artifact.. Interpretation IMPRESSION: This is a normal awake and drowsy routine EEG. There is no evidence of focal slowing or epileptiform activity.
[2023-05-29 07:57] LABS: Hematocrit (blood only) 45.4 % (42.0-52.0); Hemoglobin 15.5 g/dl (14.0-18.0); Mean Corpuscular Hemoglobin 32.4 pg (25.0-34.0); Mean Corpuscular Hgb Conc 34.1 g/dL (32.0-36.0); Mean Corpuscular Volume 94.8 fL (80.0-100.0); Mean Platelet Volume 9.5 fL (9.4-12.4); Platelet Count 260 K/uL (130-400); RDW Coefficient of Variation 11.9 % (11.5-14.5); RDW Standard Deviation 41.4 fL (36.4-46.3); Red Blood Count 4.79 M/uL (4.70-6.10); White Blood Count 7.32 K/ul (4.8-10.8)
[2023-05-29] MEDS: THIAMINE HCL 100 MG TAB PO SCH (08:12)
[2023-05-29] MEDS: FOLIC ACID 1 MG TAB PO SCH (08:12)
[2023-05-29] MEDS: NICOTINE 14 MG/24 HR PATCH TD SCH (08:12)
[2023-05-29] MEDS: FINASTERIDE 5 MG TAB PO SCH (08:12)
[2023-05-29] MEDS: levETIRAcetam 500 MG TAB PO SCH (08:12)
[2023-05-29 08:18] LABS: Magnesium 2.3 mg/dl (1.7-2.4); Potassium 4.1 mmol/L (3.5-5.1)
[2023-05-29 08:24] LABS: BUN Creatinine Ratio 15.6 (10-20); Est GFR (Non-African American) 102.7 ml/min; Phosphorus 4.4 mg/dl (2.5-4.9)
--- NOTE | 2023-05-29 13:03 | Hospitalist Progress Note ---
Date of Service May 29, 2023 Assessment & Plan (1) Seizure-like activity: (2) Tobacco use: (3) Alcohol use disorder: Plan per Dr. Wade's notes with addendum: This is a 33-year-old male with PMH of alcohol use disorder, tobacco use who presents after a witnessed seizure like activity episode at work. Seizure like activity Tonic clonic activity witnessed at work, happened once before Apr 26 with a prodrome of flashing lights in peripheral vision In setting of alcohol use disorder, denies any history of seizures prior to last month Head CT and cervical spine CT did not show any acute abnormality Discussed on admission with Dr. Souza of neurology - recommends MRI brain w/wo, EEG. At that time felt no need for antiseizure medication. 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 Neurosurgical consultation is recommended. 05/28 - Discussed with Neurology and neurosurgery - neurosurgery recommends [place] [facility] [place] pt accepted to neurology Dr. Root - plan for further neurosurg. eval. poss. biopsy of the lesion Start Keppra 500 bid 05/29 No recurrence of seizures Tolerating Keppra well Awaiting transfer to [facility] when bed available Alcohol use disorder, withdrawal Endorses 5-6 beers nightly, up to 1 case on weekends AST elevated at 43, etoh level <10 AWSS withdrawal protocol with gabapentin and PRN IV ativan Counseled on importance of alcohol cessation On admission appeared to be in early stages of alcohol withdrawal with mild tremors, tachycardia and hypertension, currently w/ no signs of withdrawal Cont. folic acid and thiamine 05/29 no active symptoms Tobacco use disorder Counseled on smoking cessation Nicotine patch ordered DVT Ppx: SCDs Code status: FULL PCP: no PCP (will need to establish at time of discharge) Disposition: pending Admission and Anticipated Discharge Date Admission Date: May 27, 2023 Subjective Follow-up for seizure, occipital brain mass, etc. Seen resting in bed, comfortable, sitting up, not in distress States he feels fine overall No recurrence of seizures, no focal neurologic symptoms Denies headache, dizziness, nausea No other new symptoms Review of Systems Review of Systems: all noted and negative except for above Physical Exam Physical Exam: General- oriented x 3, not in distress, speaks in sentences with no effort or accessory muscle use Eyes- anicteric Neck- no JVD Lungs- clear breath sounds bilaterally, no rales/wheezes Heart- normal rate, regular rhythm; no murmurs Abdomen- normal bowel sounds, nondistended, soft, nontender Extremities- no pretibial edema, no calf tenderness Neuro- alert, oriented x 3; no gross focal neurologic deficits Skin- warm & dry Results & Data Results & Data Vital Signs (Past 12 Hours) Vital Signs Temp Pulse Pulse Resp BP Pulse Ox O2 Del Method 05/29/23 10:48 36.6 C 79 18 123/84 98 Room Air 05/29/23 07:04 36.6 C 73 18 123/76 96 Room Air 05/29/23 04:15 36.5 C 68 18 115/75 98 Room Air .all 05/29/23 01:26 82 all noted and reviewed including below
--- NOTE | 2023-05-29 15:23 | Discharge Summary ---
Discharge Summary Date of Service May 29, 2023 Notes For Next Care Provider Medication Changes From Visit Please refer to assessment and plan as noted below. Admission HPI Per Admitting Provider This is a 33-year-old male with PMH of alcohol use disorder, tobacco use who presents after a witnessed seizure like activity episode at work today. Patient is not established with a PCP. First developed an episode of flashing lights in lateral visual dawn back around [facility] but no seizure like activity was associated. Then on Apr 26, patient also experienced described flashing lights in peripheral vision and sat down on couch, becoming rigid and falling onto stomach and began twitching and frothing at the mouth. And then he came to and returned to normal activity. No loss of bowel or bladder control. That event lasted for 2 minutes and was witnessed by his significant other. Initially called an ambulance but then decided not to come in because he felt better. Did not recur again untilt his morning, when he was at work and developed flashing light in lateral visual field and then reportedly became rigid and fell over. Coworker caught him and said he became stiff and was twitching a bit. Lasted approximately 2 minutes. After event had a headache and felt nauseated. No loss of bowel or bladder control. Was brought into ED for further evaluation. No known seizure history prior to event last month. Drinks 5-6 beers/ night and up to a full case on the weekends. Smokes 1/2 ppd. Sister was just diagnosed with MS. Only home medication is finasteride for hair loss. Admission Exam Per Admitting Provider General: Well hydrated, no acute distress Eyes: PERRL, conjunctivae normal, not pale, anicteric sclerae, EOM intact bilaterally ENMT: External ear and nose normal, oropharynx normal Respiratory: Normal respiratory effort, no respiratory distress, lungs clear to auscultation, no crackles and no wheezes Cardiovascular: Tachycardic, regular Gastrointestinal (Abdomen): Abdomen is not distended, soft, non-tender to palpation, no guarding, no palpable hepatosplenomegaly, normal bowel sounds Musculoskeletal: No pedal edema, all extremities motor strength 5/5 Genitourinary:No CVA tenderness Neurologic: Alert and oriented x 3, No focal weakness, sensation grossly intact, mild tremors of outstretched hands Psychiatric: Euthymic affect Principal Dx & Hospital Course #1 = Principal Diagnosis (1) Seizure-like activity: (2) Tobacco use: (3) Alcohol use disorder: Plan per Dr. Wade's notes with addendum: This is a 33-year-old male with PMH of alcohol use disorder, tobacco use who presents after a witnessed seizure like activity episode at work. Seizure like activity Tonic clonic activity witnessed at work, happened once before Apr 26 with a prodrome of flashing lights in peripheral vision In setting of alcohol use disorder, denies any history of seizures prior to last month Head CT and cervical spine CT did not show any acute abnormality Discussed on admission with Dr. Souza of neurology - recommends MRI brain w/wo, EEG. At that time felt no need for antiseizure medication. 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 Neurosurgical consultation is recommended. 05/28 - Discussed with Neurology and neurosurgery - neurosurgery recommends transfer to [facility] - pt accepted to neurology Dr. Root - plan for further neurosurg. eval. poss. biopsy of the lesion Start Keppra 500 bid 05/29 No recurrence of seizures Tolerating Keppra well Awaiting transfer to [facility] when bed available Alcohol use disorder, withdrawal Endorses 5-6 beers nightly, up to 1 case on weekends AST elevated at 43, etoh level <10 AWSS withdrawal protocol with gabapentin and PRN IV ativan Counseled on importance of alcohol cessation On admission appeared to be in early stages of alcohol withdrawal with mild tremors, tachycardia and hypertension, currently w/ no signs of withdrawal Cont. folic acid and thiamine 05/29 no active symptoms Tobacco use disorder Counseled on smoking cessation Nicotine patch ordered DVT Ppx: SCDs Code status: FULL PCP: no PCP (will need to establish at time of discharge) Disposition: pending Discharge Exam General- oriented x 3, not in distress, speaks in sentences with no effort or accessory muscle use Eyes- anicteric Neck- no JVD Lungs- clear breath sounds bilaterally, no rales/wheezes Heart- normal rate, regular rhythm; no murmurs Abdomen- normal bowel sounds, nondistended, soft, nontender Extremities- no pretibial edema, no calf tenderness Neuro- alert, oriented x 3; no gross focal neurologic deficits Updated Medication List Medication Instructions Recorded Confirmed Type finasteride 5 mg tablet 5 mg PO DAILY 05/27/23 05/27/23 History folic acid 1 mg tablet 1 mg PO QAM 14 days #14 tabs 05/29/23 Rx levetiracetam 500 mg tablet 500 mg PO BID 14 days #28 tabs 05/29/23 Rx (Keppra) nicotine 7 mg/24 hr daily 14 mg transdermal QAM 14 days #14 05/29/23 Rx transdermal patch ea thiamine HCl (vitamin B1) 100 mg 100 mg PO QAM 14 days #14 tabs 05/29/23 Rx tablet Hospital Stay Data Consultations 05/27/23 16:09 ED Decision to Admit Stat 05/27/23 17:35 Consult Neurology Routine 05/28/23 17:16 Burn CD for patient Stat Diagnostic Imagining Performed Laboratory Results WBC 7.32 K/ul (4.8-10.8) 05/29/23 07:35 RBC 4.79 M/uL (4.70-6.10) 05/29/23 07:35 Hgb 15.5 g/dl (14.0-18.0) 05/29/23 07:35 Hct 45.4 % (42.0-52.0) 05/29/23 07:35 MCV 94.8 fL (80.0-100.0) 05/29/23 07:35 MCH 32.4 pg (25.0-34.0) 05/29/23 07:35 MCHC 34.1 g/dL (32.0-36.0) 05/29/23 07:35 RDW Std Deviation 41.4 fL (36.4-46.3) 05/29/23 07:35 RDW Coeff of Mariah 11.9 % (11.5-14.5) 05/29/23 07:35 Plt Count 260 K/uL (130-400) 05/29/23 07:35 MPV 9.5 fL (9.4-12.4) 05/29/23 07:35 Immature Gran % (Auto) 0.8 % 05/27/23 13:20 Neut % (Auto) 69.4 % 05/27/23 13:20 Lymph % (Auto) 21.0 % 05/27/23 13:20 Wythe % (Auto) 7.9 % 05/27/23 13:20 Eos % (Auto) 0.2 % 05/27/23 13:20 Baso % (Auto) 0.7 % 05/27/23 13:20 Neut # (Auto) 6.38 K/uL (1.40-6.50) 05/27/23 13:20 Lymph # (Auto) 1.93 K/uL (1.20-3.40) 05/27/23 13:20 Wythe # (Auto) 0.73 K/uL (0.11-0.59) H 05/27/23 13:20 Eos # (Auto) 0.02 K/uL (0.00-0.50) 05/27/23 13:20 Baso # (Auto) 0.06 K/uL (0.00-0.20) 05/27/23 13:20 Immature Gran # (Auto) 0.07 K/uL (0.01-0.20) 05/27/23 13:20 PT 10.9 Seconds (9.0-12.0) 05/27/23 16:50 INR 1.0 (0.9-1.1) 05/27/23 16:50 APTT 25 Seconds (21-31) 05/27/23 16:50 PTT Ratio 0.9 05/27/23 16:50 Sodium 141 mmol/L (136-145) 05/29/23 07:35 Potassium 4.1 mmol/L (3.5-5.1) 05/29/23 07:35 Chloride 104 mmol/L (98-107) 05/29/23 07:35 Carbon Dioxide 31 mmol/L (21-32) 05/29/23 07:35 Anion Gap 6 (3-11) 05/29/23 07:35 BUN 15 mg/dl (6-23) 05/29/23 07:35 Creatinine 0.96 mg/dl (0.6-1.4) 05/29/23 07:35 Est Cr Clr Drug Dosing 119.0 ml/min 05/29/23 07:35 Est GFR ( Amer) 119.0 ml/min 05/29/23 07:35 Est GFR (Non-Af Amer) 102.7 ml/min 05/29/23 07:35 BUN/Creatinine Ratio 15.6 (10-20) 05/29/23 07:35 Glucose 98 mg/dl (70-99(Fasting)) 05/29/23 07:35 POC Glucose 124 mg/dl (70-99) H 05/27/23 14:46 Calcium 10.0 mg/dl (8.6-10.3) 05/29/23 07:35 Phosphorus 4.4 mg/dl (2.5-4.9) 05/29/23 07:35 Magnesium 2.3 mg/dl (1.7-2.4) 05/29/23 07:35 Total Bilirubin 0.7 mg/dl (0.2-1.0) 05/27/23 13:20 Direct Bilirubin 0.1 mg/dl (0-0.2) 05/27/23 13:20 AST 43 U/L (13-39) H 05/27/23 13:20 ALT 42 U/L (7-52) 05/27/23 13:20 Alkaline Phosphatase 49 U/L (34-104) 05/27/23 13:20 Total Creatine Kinase 223 U/L (30-223) 05/27/23 13:20 Total Protein 7.8 gm/dl (6.0-8.3) 05/27/23 13:20 Albumin 5.1 gm/dl (3.4-5.0) H 05/27/23 13:20 Lipase 38 U/L (11-82) 05/27/23 13:20 Urine Color Yellow 05/27/23 14:56 Urine Appearance Clear (Clear) 05/27/23 14:56 Urine pH 5.5 (4.5-7.5) 05/27/23 14:56 Ur Specific Laurel 1.016 (1.000-1.030) 05/27/23 14:56 Urine Protein Trace (Negative) H 05/27/23 14:56 Urine Glucose (UA) Negative (Negative) 05/27/23 14:56 Urine Ketones Negative (Negative) 05/27/23 14:56 Urine Blood Negative (Negative) 05/27/23 14:56 Urine Nitrite Negative (Negative) 05/27/23 14:56 Urine Bilirubin Negative (Negative) 05/27/23 14:56 Urine Urobilinogen Negative (Negative) 05/27/23 14:56 Ur Leukocyte Esterase Negative (Negative) 05/27/23 14:56 Urine WBC (Auto) 1-5 /hpf (0-5) 05/27/23 14:56 Urine RBC (Auto) 0-4 /hpf (0-4) 05/27/23 14:56 U Hyaline Cast (Auto) 1-5 /lpf (0-5) 05/27/23 14:56 U Epithel Cells (Auto) 10-20 /lpf (0-5) H 05/27/23 14:56 Urine Bacteria (Auto) Negative (Negative) 05/27/23 14:56 Ethyl Alcohol mg/dL < 10.0 mg/dl (<10.0) 05/27/23 14:[address] 05/27/23 14:01 CT cervical spine wo con CT DOSE: 1119. mGy.cm CLINICAL HISTORY: 33 years-old Male with seizure. Acute seizure-like activity COMPARISON: Head CT of same day TECHNIQUE: Multiple axial CT images of the cervical spine were obtained without contrast. A dose lowering technique was utilized adhering to the principles of ALARA. FINDINGS: Minimal multilevel intervertebral disc space narrowing with mild uncovertebral hypertrophy. No acute fracture or subluxation identified. Minimal facet arthrosis. Chronic-appearing corticated ossification adjacent to the C7 spinous process. Minimal wedge deformity of the C7 vertebral body appears chronic. Minimal levoscoliosis. The cervical soft tissues appear unremarkable. The visualized lung apices appear clear. IMPRESSION: No acute cervical spine fracture or subluxation. ACT 112: Negative or not required by law. The above report was generated using voice recognition software. It may contain grammatical, syntax or spelling errors. Electronically signed by: Atul Jasmine M.D. 05/27/2023 2:[address] 05/27/23 14:01 CT OF THE HEAD WITHOUT CONTRAST CLINICAL HISTORY: Seizure. COMPARISON STUDY: No previous studies for comparison. TECHNIQUE: Helical axial images of the head were obtained without IV contrast. Automated exposure control was utilized for the study. A dose lowering technique was utilized adhering to the principles of ALARA. FINDINGS: No acute intracranial hemorrhage, midline shift or mass effect is present. The ventricular system is unremarkable. The basal cisterns are patent. No extra-axial collections are present. There are no findings to suggest acute dural sinus thrombosis or acute territorial infarct. There are no calvarial frac tures. IMPRESSION: No acute intracranial findings. ACT 112: Negative or not required by law. Electronically signed by: Aftab Gallegos M.D. 05/27/2023 2:59 PM Brain MRI 05/27/23 17:31 Exam(s): MRI HEAD W/WO Contrast IV Amt: 8mL Gadavist given IV EXAM: MR Head Without and With Intravenous Contrast CLINICAL HISTORY: Reason for exam: seizure. TECHNIQUE: Magnetic resonance images of the head/brain without and with intravenous contrast in multiple planes. CONTRAST: Patient received 8mL Gadavist given IV of IV contrast COMPARISON: CT head 05/27/2023. FINDINGS: Brain: Enhancing, T2-weighted/FLAIR hyperintense mass appears to be centered in the cortex of the lingual gyrus of the right occipital lobe measuring approximately 11 x 12 x 9 mm. There is a nonenhancing component along the superior aspect of the mass. Minimal mass effect is seen. No hemorrhage. No acute infarct. Ventricles: Unremarkable. No ventriculomegaly. Bones/joints: Unremarkable. No acute fracture. Sinuses: Unremarkable as visualized. Mastoid air cells: Unremarkable as visualized. No mastoid effusion. Orbits: Unremarkable as visualized. 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 Neurosurgical consultation is recommended. Electronically signed by: Ronnie Jerez MD 05/27/23 22:27 PM 05/27/23 14:01 CT cervical spine wo con Stat CT head/brain wo con Stat 05/27/23 17:31 MRI Brain [MR brain wo/w con] Routine Pending Results Patient Have Any Pending Studies at Discharge: No Discharge Instructions Given to Patient (Per Discharging Provider) Patient admitted with new onset seizure and found to have a brain lesion. Neurosurgery and neurology consulted with - recommend to transfer to [facility] for further neurosurgery evaluation. Patient accepted to neurology service - Dr. Root. Total Time Total Time Spent Total Time Spent (In Minutes): >30 minutes
[2023-05-29] MEDS ORDERED: GABAPENTIN 600 MG TAB PO SCH (17:30)
[2023-05-31] MEDS ORDERED: GABAPENTIN 600 MG TAB PO SCH (05:30)
== END 2023-05-29 17:25 | disposition short-term general hospital (02) | DRG 101 ==
LOC: ED 13:21 → EDINP 16:36 → SUATTDRO 16:36 → 2S 19:22